=== PATIENT | female | born 1980 | race Caucasian/White ===

== ENCOUNTER 2018-10-03 20:15 | Inpatient (IN) | payer OTHER ==
[~2018-10-03] VITALS: Ht 154.9 cm; Wt 95.3 kg
[~2018-10-03 20:15] MED LIST: DOCUSATE SODIU100 MG PO; FERRO-PLEX PO; Micronase PO; PRENATE ADVANCE PO; Procardia 10MG CAP PO; Vistaryl PO; [UNRECOGNIZED DRUG - OTHER] TP
[2018-10-04] MEDS ORDERED: GLYBURIDE5 MG PO (08:50)
[2018-10-04] MEDS ORDERED: GLYBURIDE2.5 MG PO (08:50)
[2018-10-04] MEDS ORDERED: HYDROXYZINE HCL25 MG PO (08:57)
[2018-10-04] MEDS ORDERED: NIFEDIPINE10 MG PO (09:00)
[2018-10-06] MEDS ORDERED: OBSTETRIX DHA1 EACH PO (08:05)
== END 2018-10-08 10:05 | DRG 833 ==
LOC: OB/GYN 20:15
PROVIDERS: ADMIT Obstetrics & Gynecology
PROC: 4A0HXFZ Measurement of Products of Conception, Cardiac Rhythm, External Approach (ICD-10-PCS; principal; 2018-10-03)
PROC: BY49ZZZ Ultrasonography of First Trimester, Single Fetus (ICD-10-PCS; 2018-10-03)
DX: O24.414 Gestational diabetes mellitus in pregnancy, insulin controlled (principal); O09.521 Supervision of elderly multigravida, first trimester; Z3A.12 12 weeks gestation of pregnancy
CPT/HCPCS: 240

== ENCOUNTER → 2018-11-17 | Outpatient (CLI) | payer OTHER ==
[~2018-11-17] MED LIST changes: +GLYBURIDE2.5 MG PO; +GLYBURIDE5 MG PO; +HYDROXYZINE HCL25 MG PO; +NIFEDIPINE10 MG PO; +OBSTETRIX DHA1 EACH PO
== END | disposition home or self-care (01) ==
LOC: PRENATAL 08:48
DX: O24.419 Gestational diabetes mellitus in pregnancy, unspecified control (principal); O09.212 Supervision of pregnancy with history of pre-term labor, second trimester; O09.522 Supervision of elderly multigravida, second trimester; O99.212 Obesity complicating pregnancy, second trimester

== ENCOUNTER 2019-02-05 15:21 | Outpatient (CLI) | payer OTHER | END 2019-02-05 16:40 | disposition home or self-care (01) | LOC: PRENATAL 15:21 | DX: O24.313 Unspecified pre-existing diabetes mellitus in pregnancy, third trimester (principal); O09.513 Supervision of elderly primigravida, third trimester; O26.843 Uterine size-date discrepancy, third trimester ==

== ENCOUNTER → 2019-03-26 | Outpatient (CLI) | payer OTHER ==
[~2019-03-26] MED LIST changes: +[UNRECOGNIZED DRUG - OTHER] SUBCUTANEO; +[UNRECOGNIZED DRUG - OTHER] SUBCUTANEO
== END | disposition home or self-care (01) ==
LOC: PRENATAL 15:00
DX: O99.213 Obesity complicating pregnancy, third trimester (principal); O09.523 Supervision of elderly multigravida, third trimester; O24.313 Unspecified pre-existing diabetes mellitus in pregnancy, third trimester; O26.843 Uterine size-date discrepancy, third trimester

== ENCOUNTER 2019-04-01 03:00 | Inpatient (IN) | payer OTHER ==
[~2019-04-01] VITALS: Ht 160 cm; Wt 93.0 kg
[~2019-04-01 03:00] MED LIST changes: -[UNRECOGNIZED DRUG - OTHER] SUBCUTANEO; -[UNRECOGNIZED DRUG - OTHER] SUBCUTANEO
[2019-04-01] MEDS ORDERED: [UNRECOGNIZED DRUG - OTHER] SUBCUTANEO ×2 (03:09→03:12)
[2019-04-01] MEDS ORDERED: [UNRECOGNIZED DRUG - OTHER] SUBCUTANEO ×2 (03:10→03:11)
== END 2019-04-03 12:03 | disposition home or self-care (01) | DRG 807 ==
LOC: LDR 03:00 → OB/GYN 03:00
PROVIDERS: ADMIT Obstetrics & Gynecology
PROC: 10E0XZZ Delivery of Products of Conception, External Approach (ICD-10-PCS; principal; 2019-04-01)
PROC: 4A1HXCZ Monitoring of Products of Conception, Cardiac Rate, External Approach (ICD-10-PCS; 2019-04-01)
DX: O24.410 Gestational diabetes mellitus in pregnancy, diet controlled (principal); Z37.0 Single live birth; Z3A.38 38 weeks gestation of pregnancy

== ENCOUNTER 2020-02-01 22:05 | Outpatient (CLI) | payer OTHER ==
[~2020-02-01 22:05] MED LIST changes: +[UNRECOGNIZED DRUG - OTHER] SUBCUTANEO; +[UNRECOGNIZED DRUG - OTHER] SUBCUTANEO
== END 2020-02-02 13:16 | disposition home or self-care (01) ==
LOC: OBS/DEL 22:05 → LDR 22:12 → OBS/DEL 02-02 13:16
PROVIDERS: ATTEND Obstetrics & Gynecology
DX: O24.410 Gestational diabetes mellitus in pregnancy, diet controlled (principal); O09.522 Supervision of elderly multigravida, second trimester

== ENCOUNTER → 2020-02-05 | Outpatient (CLI) | payer OTHER | END | disposition home or self-care (01) | LOC: PRENATAL 13:00 | PROVIDERS: ATTEND Obstetrics & Gynecology Maternal & Fetal Medicine | DX: O24.410 Gestational diabetes mellitus in pregnancy, diet controlled (principal); O35.3XX1 Maternal care for (suspected) damage to fetus from viral disease in mother, fetus 1; O98.512 Other viral diseases complicating pregnancy, second trimester; O35.0XX1 Maternal care for (suspected) central nervous system malformation in fetus, fetus 1; Z36.89 Encounter for other specified antenatal screening; Z3A.19 19 weeks gestation of pregnancy ==

== ENCOUNTER → 2020-04-18 | Outpatient (CLI) | payer OTHER | END | disposition home or self-care (01) | LOC: PRENATAL 09:51 | PROVIDERS: ATTEND Obstetrics & Gynecology Maternal & Fetal Medicine | DX: O26.843 Uterine size-date discrepancy, third trimester (principal); O24.410 Gestational diabetes mellitus in pregnancy, diet controlled; Z36.89 Encounter for other specified antenatal screening; O09.522 Supervision of elderly multigravida, second trimester; Z3A.30 30 weeks gestation of pregnancy ==

== ENCOUNTER 2020-05-12 08:09 | Outpatient (CLI) | payer OTHER | END 2020-05-12 09:18 | disposition home or self-care (01) | LOC: NST 08:09 | PROVIDERS: ATTEND Obstetrics & Gynecology | DX: Z34.83 Encounter for supervision of other normal pregnancy, third trimester (principal) ==

== ENCOUNTER → 2020-05-19 | Outpatient (CLI) | payer OTHER ==
[~2020-05-19] MED LIST changes: +AMOX1TAB5 PO; +DERMOPLAST PAIN78 GM TOP; +IBUPROFEN400 MG PO; +PREPLUS CA-FE1 EACH PO
== END | disposition home or self-care (01) ==
LOC: PRENATAL 09:59
PROVIDERS: ATTEND Obstetrics & Gynecology Maternal & Fetal Medicine
DX: O26.843 Uterine size-date discrepancy, third trimester (principal); O24.313 Unspecified pre-existing diabetes mellitus in pregnancy, third trimester; O36.8131 Decreased fetal movements, third trimester, fetus 1; Z36.89 Encounter for other specified antenatal screening; Z3A.34 34 weeks gestation of pregnancy

== ENCOUNTER 2020-06-05 05:14 | Outpatient (CLI) | payer OTHER ==
[~2020-06-05 05:14] MED LIST changes: -AMOX1TAB5 PO; -DERMOPLAST PAIN78 GM TOP; -IBUPROFEN400 MG PO; -PREPLUS CA-FE1 EACH PO
== END 2020-06-05 16:53 | disposition home or self-care (01) ==
LOC: OBS/DEL 05:14
PROVIDERS: ATTEND Obstetrics & Gynecology
DX: O24.410 Gestational diabetes mellitus in pregnancy, diet controlled (principal); O99.213 Obesity complicating pregnancy, third trimester; E66.8 Other obesity; Z3A.36 36 weeks gestation of pregnancy; O26.893 Other specified pregnancy related conditions, third trimester; N39.498 Other specified urinary incontinence

== ENCOUNTER 2020-06-18 01:55 | Inpatient (IN) | payer OTHER ==
[~2020-06-18] VITALS: Ht 160 cm; Wt 90.3 kg
[2020-06-20] MEDS ORDERED: PREPLUS CA-FE1 EACH PO (08:28)
[2020-06-20] MEDS ORDERED: IBUPROFEN400 MG PO (08:28)
[2020-06-20] MEDS ORDERED: DERMOPLAST PAIN78 GM TOP (08:28)
[2020-06-20] MEDS ORDERED: AMOX1TAB5 PO (08:28)
[2020-06-20] MEDS ORDERED: DOCUSATE SODIU100 MG PO (08:28)
== END 2020-06-20 14:19 | disposition home or self-care (01) | DRG 807 ==
LOC: OBS/DEL 01:55 → LDR 05:25 → OB/GYN 11:38
PROVIDERS: ADMIT Obstetrics & Gynecology; ATTEND Obstetrics & Gynecology
PROC: 10E0XZZ Delivery of Products of Conception, External Approach (ICD-10-PCS; principal; 2020-06-18)
PROC: 0W8NXZZ Division of Female Perineum, External Approach (ICD-10-PCS; 2020-06-18)
PROC: 4A1HXFZ Monitoring of Products of Conception, Cardiac Rhythm, External Approach (ICD-10-PCS; 2020-06-18)
DX: O24.424 Gestational diabetes mellitus in childbirth, insulin controlled (principal); Z37.0 Single live birth; Z3A.38 38 weeks gestation of pregnancy; Z20.822 Contact with and (suspected) exposure to COVID-19